=== PATIENT | female | born 1970 | race Caucasian/White ===

== ENCOUNTER 2017-05-24 21:13 | Emergency (ER) | payer MEDICAID ==
[2017-05-24] MEDS ORDERED: PENICILLIN V POTASSIUM 250 MG TAB PO ONE (21:34)
--- NOTE | 2017-05-24 21:34 | Emergency Department Record ---
History of Present Illness - General Chief complaint: Toothache Stated complaint: "LEFT SIDE I TOOTH ABSCESS" Time Seen by Provider: 05/24/17 21:32 Source: Patient Mode of Arrival: Ambulatory Limitations: No limitations - History of Present Illness Initial comments: 47 yo female presents to ED for evaluation or pain to a lower left tooth for the past 3-4 days. Patient denies swelling to the gingiva, but does report a history of RA that she takes (2) immuno-suppressant medications for, and the patient is concerned about possible dental infection at the base of her tooth. Patient called her dentist who could not see her until early next week. Patient denies injury/trauma to the teeth. MD complaint: Tooth pain Onset/Timin -: Days(s) Severity scale (1-10): 8 Quality: Aching, Other Consistency: Constant Improves with: None - Related Data Home Medications Medication Instructions Recorded Confirmed Last Taken Abatacept/Maltose [Orencia] 250 mg IV MONTHLY 05/24/17 05/24/17 05/23/17 Nortriptyline HCl [Pamelor] 50 mg PO QHS 05/24/17 05/24/17 Unknown Previous Rx's Medication Instructions Recorded Orphenadrine Citrate [Norflex] 100 mg PO Q12H PRN #15 tab 02/26/15 Acetaminop W/ Codeine 300/30Mg 1 tab PO Q6H PRN #10 tab 05/24/17 [Tylenol #3] Penicillin V Potassium 500 mg PO QID #28 tablet 05/24/17 Allergies Allergy/AdvReac Type Severity Reaction Status Date / Time carisoprodol [From Soma] Allergy DIFFICULTY Verified 04/26/15 00:17 BREATHING chlorzoxazone Allergy DIFFICULTY Verified 04/26/15 00:17 [From Parafon Forte] BREATHING famotidine [From Pepcid] Allergy DIFFICULTY Verified 04/26/15 00:17 SWALLOWING lisinopril Allergy SWELLING Verified 04/26/15 00:17 OF THE TONGUE Sulfa (Sulfonamide Allergy HIVES Verified 04/26/15 00:17 Antibiotics) cyclobenzaprine HCl AdvReac TACHYCARDIA Verified 04/26/15 00:17 [From Flexeril] diazepam [From Valium] AdvReac BEHAVIORAL Verified 04/26/15 00:17 CHANGES methylnaltrexone bromide AdvReac ABDOMINAL Verified 04/26/15 00:17 [From Relistor] PAIN metoclopramide HCl AdvReac BEHAVIORAL Verified 04/26/15 00:17 [From Reglan] CHANGES NSAIDS (Non-Steroidal AdvReac ABDOMINAL Verified 04/26/15 00:17 Anti-Inflamma PAIN prochlorperazine edisylate AdvReac BEHAVIORAL Verified 07/10/14 16:45 [From Compazine] CHANGES prochlorperazine maleate AdvReac BEHAVIORAL Verified 07/10/14 16:45 [From Compazine] CHANGES Travel Screening - Travel/Exposure Within Last 30 Days Have you traveled within the last 30 days?: No - Travel Symptoms Symptom Screening: None Review of Systems Constitutional: Denies: Chills, Fever, Malaise, Night sweats Eyes: Denies: Eye discharge, Eye pain ENT: Reports: Dental pain. Denies: Ear pain Respiratory: Denies: Cough, Dyspnea Cardiovascular: Denies: Chest pain, Dyspnea on exertion Endocrine: Denies: Fatigue, Heat or cold intolerance Gastrointestinal: Denies: Abdominal pain, Nausea, Vomiting Genitourinary: Denies: Incontinence, Retention Musculoskeletal: Denies: Arthralgia, Back pain Skin: Denies: Bruising, Change in color Neurological: Denies: Abnormal gait, Confusion, Headache, Seizure Psychiatric: Denies: Anxiety Hematological/Lymphatic: Denies: Anemia, Blood Clots Past Medical History - SOCIAL HISTORY Smoking Status: Never smoker - RESPIRATORY Hx Respiratory Disorders: Yes Hx Bronchitis: Yes Hx Pneumonia: Yes - CARDIOVASCULAR Hx Cardio Disorders: Yes Hx Hypertension: Yes - NEURO Hx Neuro Disorders: Yes Comment:: migraines - GI Hx GI Disorders: Yes Hx Reflux: Yes Hx Irritable Bowel: Yes Comment:: gastroporesis - Hx Genitourinary Disorders: Yes Comment:: endometriosis - ENDOCRINE Hx Endocrine Disorders: Yes Hx Diabetes: No (not on meds) Hx Thyroid Disease: Yes (low) - MUSCULOSKELETAL Hx Musculoskeletal Disorders: Yes Hx Arthritis: Yes Hx Fibromyalgia: Yes Comment:: Facet blocks Q3mos for neck(02/2015); torn R shoulder rotator cuff - PSYCH Hx Psych Problems: Yes Hx Anxiety: Yes Hx Depression: Yes - HEMATOLOGY/ONCOLOGY Hx Hematology/Oncology Disorders: No Family Medical History Any Significant Family History?: Yes Hx Cancer: Mother Hx Diabetes: Brother/Sister Hx Heart Disease: Father Hx HTN: Brother/Sister Hx Resp Disorders: Mother Physical Exam - General General Appearance: Alert, Oriented x3, Cooperative, No acute distress Limitations: No limitations - Head Head exam: Atraumatic, Normocephalic, Normal inspection Head exam detail: negative: Abrasion, Contusion, Franklin's sign, General tenderness, Hematoma, Laceration - Eye Eye exam: Normal appearance. negative: Conjunctival injection, Periorbital swelling, Periorbital tenderness, Scleral icterus - ENT Ear exam: negative: Auricular hematoma, Auricular trauma Nasal Exam: negative: Active bleeding, Discharge, Foreign body Mouth exam: negative: Drooling, Laceration, Muffled voice, Tongue elevation Teeth exam: Dental tenderness #. negative: Gingival enlargement Throat exam: negative: Tonsillar erythema, Tonsillomegaly, R peritonsillar mass , L peritonsillar mass Image of Mouth/Teeth: 1 - Dental pain, no gingival abscess is present on examination. - Neck Neck exam: Normal inspection. negative: Meningismus, Tenderness - Respiratory Respiratory exam: Normal lung sounds bilaterally. negative: Rales, Respiratory distress, Rhonchi, Stridor - Cardiovascular Cardiovascular Exam: Regular rate, Normal rhythm, Normal heart sounds - GI/Abdominal GI/Abdominal exam: Soft. negative: Rebound, Rigid, Tenderness - Rectal Rectal exam: Deferred - exam: Deferred - Extremities Extremities exam: Normal inspection. negative: Calf tenderness, Pedal edema, Tenderness - Back Back exam: Denies: CVA tenderness (R), CVA tenderness (L) - Neurological Neurological exam: Alert, Normal gait, Oriented X3 - Psychiatric Psychiatric exam: Normal affect, Normal mood - Skin Skin exam: Normal color. negative: Abrasion Type of lesion: negative: abrasion Course Vital Signs 05/24/17 21:20 Temperature 98.8 F Pulse Rate [ 87 Pulse Ox Probe] Respiratory 18 Rate Blood Pressure 121/89 [Left Arm] Pulse Ox 97 - Reevaluation(s) Reevaluation #1: 05/24/17 21:38 Symptoms appear c/w dental abscess at the base of the tooth, will prescribe Penicillin VK (free at [facility]) with instructions for follow-up with her dentist in 3-5 days as directed. Disposition Disposition: Discharge Clinical Impression: Dental abscess Disposition: Home, Self-Care Condition: (2) Stable Instructions: Dental Abscess (ED) Additional Instructions: Return to ED if your symptoms worsen or if you have any concerns. Penicillin VK as directed. Follow-up with your dentist in 3-5 days as directed. Prescriptions: Acetaminop W/ Codeine 300/30Mg [Tylenol #3] 1 tab PO Q6H PRN #10 tab PRN Reason: Pain - Moderate (5-7) Penicillin V Potassium 500 mg PO QID #28 tablet Forms: Patient Portal Access Time of Disposition: 21:33 Quality - Quality Measures Quality Measures: N/A - Blood Pressure Screening Does Patient Have Any of the Following: No Blood Pressure Classification: Pre-Hypertensive BP Reading Systolic Measurement: 121 Diastolic Measurement: 89 Screening for High Blood Pressure: < Pre-Hypertensive BP, F/U Documented > [ G8950] Pre-Hypertensive Follow-up Interventions: Referral to alternative/primary care provider.
== END 2017-05-24 21:49 | disposition home or self-care (01) ==
LOC: ER 21:13
DX: K04.7 Periapical abscess without sinus (principal); M06.9 Rheumatoid arthritis, unspecified; I10 Essential (primary) hypertension
CPT/HCPCS: 99282

== ENCOUNTER 2017-12-08 19:26 | Emergency (ER) | payer MEDICAID ==
--- NOTE | 2017-12-08 19:54 | Emergency Department Record ---
History of Present Illness - General Chief complaint: Extremity Problem Stated complaint: RIGHT WRIST AND THUMB PAIN Time Seen by Provider: 12/08/17 19:50 Source: Patient Mode of Arrival: Ambulatory Limitations: No limitations - History of Present Illness Initial comments: 47 yo female with a history of RA presents to ED for evaluation of pain to the base of the right thumb. Patient denies injury, numbness, tingling, or weakness , but reports increased pain with attempting to open jars. Patient reports a history of RA, also reports that she is participating in PT following right shoulder surgery. Patient denies known repetitive actions that may have exacerbated her symptoms. Patient also denies fevers, chills, or redness to the area. MD Complaint: Extremity pain Onset/Timin -: Hour(s) Location: Right History of Same: Yes -: Yes Arthralgia Radiation: Proximal Severity scale (1-10): 5 Quality: Aching Consistency: Constant Improves with: Immobilization, Rest Worsens with: Exertion, Palpation Associated Symptoms: Arthralgias - Related Data Previous Rx's Medication Instructions Recorded Orphenadrine Citrate [Norflex] 100 mg PO Q12H PRN #15 tab 02/26/15 Allergies Allergy/AdvReac Type Severity Reaction Status Date / Time carisoprodol [From Soma] Allergy DIFFICULTY Verified 04/26/15 00:17 BREATHING chlorzoxazone Allergy DIFFICULTY Verified 04/26/15 00:17 [From Parafon Forte] BREATHING famotidine [From Pepcid] Allergy DIFFICULTY Verified 04/26/15 00:17 SWALLOWING lisinopril Allergy SWELLING Verified 04/26/15 00:17 OF THE TONGUE Sulfa (Sulfonamide Allergy HIVES Verified 04/26/15 00:17 Antibiotics) cyclobenzaprine HCl AdvReac TACHYCARDIA Verified 04/26/15 00:17 [From Flexeril] diazepam [From Valium] AdvReac BEHAVIORAL Verified 04/26/15 00:17 CHANGES methylnaltrexone bromide AdvReac ABDOMINAL Verified 04/26/15 00:17 [From Relistor] PAIN metoclopramide HCl AdvReac BEHAVIORAL Verified 04/26/15 00:17 [From Reglan] CHANGES NSAIDS (Non-Steroidal AdvReac ABDOMINAL Verified 04/26/15 00:17 Anti-Inflamma PAIN prochlorperazine edisylate AdvReac BEHAVIORAL Verified 07/10/14 16:45 [From Compazine] CHANGES prochlorperazine maleate AdvReac BEHAVIORAL Verified 07/10/14 16:45 [From Compazine] CHANGES Travel Screening - Travel/Exposure Within Last 30 Days Have you traveled within the last 30 days?: No Review of Systems Constitutional: Denies: Chills, Fever, Malaise, Night sweats Eyes: Denies: Eye discharge, Eye pain ENT: Denies: Congestion, Ear pain, Epistaxis Respiratory: Denies: Cough, Dyspnea Cardiovascular: Denies: Chest pain, Dyspnea on exertion Endocrine: Denies: Fatigue, Heat or cold intolerance Gastrointestinal: Denies: Abdominal pain Genitourinary: Denies: Incontinence, Retention Musculoskeletal: Reports: Arthralgia. Denies: Back pain, Gout, Joint swelling Skin: Denies: Bruising, Change in color Neurological: Denies: Abnormal gait, Confusion, Headache, Tingling, Tremors Psychiatric: Denies: Anxiety Hematological/Lymphatic: Denies: Anemia, Blood Clots Past Medical History - SOCIAL HISTORY Smoking Status: Never smoker Alcohol Use: Rare Drug Use: None - RESPIRATORY Hx Respiratory Disorders: Yes Hx Bronchitis: Yes Hx Pneumonia: Yes - CARDIOVASCULAR Hx Cardio Disorders: Yes Hx Hypertension: Yes - NEURO Hx Neuro Disorders: Yes Comment:: migraines - GI Hx GI Disorders: Yes Hx Reflux: Yes Hx Irritable Bowel: Yes Comment:: gastroporesis - Hx Genitourinary Disorders: Yes Comment:: endometriosis - ENDOCRINE Hx Endocrine Disorders: Yes Hx Diabetes: No (not on meds) Hx Thyroid Disease: Yes (low) - MUSCULOSKELETAL Hx Musculoskeletal Disorders: Yes Hx Arthritis: Yes Hx Fibromyalgia: Yes Comment:: Facet blocks Q3mos for neck(02/2015); torn R shoulder rotator cuff - PSYCH Hx Psych Problems: Yes Hx Anxiety: Yes Hx Depression: Yes - HEMATOLOGY/ONCOLOGY Hx Hematology/Oncology Disorders: No Family Medical History Any Significant Family History?: Yes Hx Cancer: Mother Hx Diabetes: Brother/Sister Hx Heart Disease: Father Hx HTN: Brother/Sister Hx Resp Disorders: Mother Physical Exam - General General Appearance: Alert, Oriented x3, Cooperative, No acute distress Limitations: No limitations - Head Head exam: Atraumatic, Normocephalic, Normal inspection Head exam detail: negative: Abrasion, Contusion, Franklin's sign, General tenderness, Hematoma, Laceration - Eye Eye exam: Normal appearance. negative: Conjunctival injection, Periorbital swelling, Periorbital tenderness, Scleral icterus - ENT Ear exam: negative: Auricular hematoma, Auricular trauma Nasal Exam: negative: Active bleeding, Discharge, Dried blood, Foreign body Mouth exam: negative: Drooling, Laceration, Muffled voice, Tongue elevation - Neck Neck exam: Normal inspection. negative: Meningismus, Tenderness - Respiratory Respiratory exam: Normal lung sounds bilaterally. negative: Respiratory distress, Rhonchi, Stridor, Wheezes - Cardiovascular Cardiovascular Exam: Regular rate, Normal rhythm, Normal heart sounds - GI/Abdominal GI/Abdominal exam: Soft. negative: Rebound, Rigid, Tenderness - Rectal Rectal exam: Deferred - exam: Deferred - Extremities Extremities exam: Tenderness (Mild TTP over the base of the right thumb, no UCL instability on examination, no STS or erythema present, FROM actively on examination.). negative: Calf tenderness, Pedal edema - Back Back exam: Denies: CVA tenderness (R), CVA tenderness (L) - Neurological Neurological exam: Alert - Psychiatric Psychiatric exam: Normal affect - Skin Skin exam: Normal color. negative: Abrasion Type of lesion: negative: abrasion Course Vital Signs 12/08/17 19:33 Temperature 99.0 F Pulse Rate [ 71 Pulse Ox Probe] Respiratory 18 Rate Blood Pressure 124/87 [Left Arm] Pulse Ox 100 - Reevaluation(s) Reevaluation #1: 12/08/17 20:38 Right hand: Mild degenerative changes No acute fracture identified Patient was updated on all results, resting comfortably typing on her mobile phone. Patient appears stable for discharge at this time. Disposition Disposition: Discharge Clinical Impression: Pain of right thumb Rheumatoid arthritis Qualifiers: Rheumatoid arthritis location: hand Rheumatoid factor presence: unspecified presence Laterality: right Qualified Code(s): M06.9 - Rheumatoid arthritis, unspecified Disposition: Home, Self-Care Condition: (2) Stable Instructions: Rheumatoid Arthritis (ED) Additional Instructions: Return to ED if your symptoms worsen or if you have any concerns. Steve as directed. Follow-up with your family doctor in 3-5 days as directed. Forms: Patient Portal Access Time of Disposition: 19:55 Quality - Quality Measures Quality Measures: N/A - Blood Pressure Screening Does Patient Have Any of the Following: No Blood Pressure Classification: Pre-Hypertensive BP Reading Systolic Measurement: 124 Diastolic Measurement: 87 Screening for High Blood Pressure: < Pre-Hypertensive BP, F/U Documented > [ G8950] Pre-Hypertensive Follow-up Interventions: Referral to alternative/primary care provider.
--- NOTE | 2017-12-10 22:21 | RADIOLOGY REPORT ---
EXAM: HAND, RIGHT 3 VIEWS HISTORY: PAIN INVOLVING THE PROXIMAL THUMB AND SECOND DIGIT. TECHNIQUE: Three views of the right hand. COMPARISON: None. FINDINGS: No acute fracture seen. No evidence of dislocation. Mild degenerative changes at the thumb carpometacarpal joint and thumb metacarpophalangeal joint. Mild arthrosis at the index metacarpophalangeal joint. No discrete osseous erosions are appreciated. IMPRESSION: NO DEFINITE ACUTE OSSEOUS FINDINGS. MILD NONSPECIFIC ARTHROSIS INVOLVING THE THUMB AND INDEX FINGER. JOB NUMBER: [id number] [facility]
== END 2017-12-08 20:47 | disposition home or self-care (01) ==
LOC: ER 19:26
DX: M06.9 Rheumatoid arthritis, unspecified (principal); M79.644 Pain in right finger(s); I10 Essential (primary) hypertension
CPT/HCPCS: 99283